=== PATIENT | female | born 1940 | race Caucasian/White ===

== ENCOUNTER 2017-03-07 07:33 | Inpatient (IN) | payer OTHER, MEDICARE ==
[~2017-03-07] VITALS: Ht 154.9 cm; Wt 77.2 kg
[~2017-03-07 07:33] MED LIST: /ADVA50050 INH; /ESCI10TA OR; /ESOM40CA OR; /PRAV20TA OR; /TIOT18INH INH; AMBI10TA OR; ARIMIDEX PO; CALCTAB22 OR; FERR325T OR; FOLI1TAB OR; Vitamin B1 PO; vitamin d2 PO
[2017-03-07] MEDS ORDERED: FENO50CA PO (07:44)
[2017-03-07] MEDS ORDERED: TEMA7.5C PO (07:44)
[2017-03-07] MEDS ORDERED: HYDR-3713 PO ×2 (07:44→10:18)
[2017-03-07] MEDS ORDERED: FURO80TA2 PO (07:44)
[2017-03-07 08:41] LABS: BASO % 0.2 % (0.0-1.0); EOS # 0.1 K/mm3 (0.0-0.50); EOS % 1.3 % (0.0-3.0); LARGE UNSTAINED CELL % 0.5 % (0.0-4.0); LYMPH # 1.2 K/mm3 (1.5-4.5); LYMPH % 12.4 % (24.0-44.0); MEAN CORPUSCULAR HEMOGLOBIN 32.7 pg (27.0-33.0); MEAN CORPUSCULAR HGB CONC 32.8 g/dl (32.0-36.5); MEAN CORPUSCULAR VOLUME 99.6 fl (80.0-96.0); MONO # 0.3 K/mm3 (0.0-0.8); MONO % 3.6 % (0.0-5.0); NEUTROPHILS # 7.7 K/mm3 (1.8-7.7); PLATELET COUNT, AUTOMATED 280 k/mm3 (150-450); RED CELL DISTRIBUTION WIDTH 12.1 % (11.5-14.5); WHITE BLOOD COUNT 9.3 K/mm3 (4.0-10.0)
[2017-03-07] MEDS ORDERED: NS 1,000 ML IV SCH (08:45)
[2017-03-07 08:54] LABS: INR 1.02
[2017-03-07 09:09] LABS: ALBUMIN 3.5 GM/DL (3.2-5.2); ALBUMIN/GLOBULIN RATIO 0.95 (1.00-1.93); ALKALINE PHOSPHATASE 78 U/L (45-117); ALT/SGPT 69 U/L (12-78); ANION GAP 7 MEQ/L (8-16); AST/SGOT 99 U/L (15-37); BILIRUBIN,DIRECT 0.6 MG/DL (0.0-0.2); BILIRUBIN,TOTAL 1.2 MG/DL (0.2-1.0); BLOOD UREA NITROGEN 25 MG/DL (7-18); CALCIUM LEVEL 9.3 MG/DL (8.8-10.2); CARBON DIOXIDE LEVEL 33 MEQ/L (21-32); CHLORIDE LEVEL 107 MEQ/L (98-107); CREATININE FOR GFR 0.91 MG/DL (0.55-1.02); GLOMERULAR FILTRATION RATE > 60.0 (>39); GLUCOSE, FASTING 144 MG/DL (83-110); POTASSIUM SERUM 3.5 MEQ/L (3.5-5.1); SODIUM LEVEL 147 MEQ/L (136-145); TOTAL PROTEIN 7.2 GM/DL (6.4-8.2)
[2017-03-07 09:20] LABS: ABG BASE EXCESS 2.2 (-2.0-2.0); ABG HCO3 27.5 MEQ/L (22.0-26.0); ABG PARTIAL PRESSURE CO2 45.2 mmHg (35.0-45.0); ABG PARTIAL PRESSURE O2 63.7 mmHg (75.0-100.0); ABG STANDARD HCO3 26.3 MEQ/L (22.0-26.0); ABG TOTAL CO2 28.9 MEQ/L (23.0-31.0); ABG pH (ARTERIAL) 7.402 UNITS (7.350-7.450)
--- NOTE | 2017-03-07 09:38 | REP ---
AP AND LATERAL LEFT ANKLE: 03/07/2017. Clinical history: Ankle trauma. Post splinting. Findings: There were no prior studies. The two views show fiberglass splint material posterior to the ankle and lower calf. There is a distal fibular fracture into the articular aspect of the mortise joint. There is lateral subluxation of the talus by least half its diameter on the tibial plafond taking the distal fragment of the fibula with it. I cannot confirm a posterior malleolar fracture or any definite medial malleolar fracture. Subtalar joints grossly intact. Calcaneus, tarsal bones and visualized metatarsals intact. Impression: 1. Fracture-subluxation involving distal fibula and the talus on the tibial plafond. The talus is subluxed laterally at least half its diameter articulation on the tibial plafond. No gross fracture medial or posterior malleoli. Signed by Clark López MD 03/07/2017 07:51 P
--- NOTE | 2017-03-07 09:38 | REP ---
AP PORTABLE SEATED CHEST: 03/07/2017. Clinical history: Lower extremity trauma. Comparison: 10/31/2011. Findings: The lungs show mild diffuse interstitial change with right diaphragm slightly elevated but unchanged from that previous exam. Heart size not enlarged. There is no pulmonary edema on today's study. The aorta is normal for age. Airway is intact. The bones show demineralization and degenerative changes AC and joints. There is chronic rotator cuff sufficiency on the right. Hardware from prior ORIF humeral fracture on the left. Impression: 1. Underlying interstitial fibrotic changes noted without cardiomegaly and no edema on today's study. No effusion or definite infiltrate. Signed by Clark López MD 03/07/2017 07:51 P
--- NOTE | 2017-03-07 10:04 | ECGEPIP ---
Stationary ECG Study [facility] - ED Test Date: 2017-03-07 Pat Name: ROGER CLIFTON Department: Room: - Gender: F Analytical Laboratory Technician: tk : [id number] Requested By: Theron Nash Order Number: [id number] Reading MD: Theron Marie Measurements Intervals [place] Rate: 71 P: 87 MN: 205 QRS: 15 QRSD: 89 T: 49 QT: 371 QTc: 405 Interpretive Statements SINUS RHYTHM WITH 1ST DEGREE AV BLOCK NONSPECIFIC T-WAVE ABNORMALITY SIMILQR TO 10/31/11 Electronically Signed On 03-07-2017 10:04:53 EDT by Theron Marie
[2017-03-07] MEDS ORDERED: NEXI40CA PO (10:18)
[2017-03-07] MEDS ORDERED: SPIR1CAP INH (10:18)
[2017-03-07] MEDS ORDERED: FURO20TA2 PO (10:18)
[2017-03-07] MEDS ORDERED: FENO67CA2 PO (10:18)
[2017-03-07] MEDS ORDERED: ANAS1TAB PO (10:18)
[2017-03-07] MEDS ORDERED: ALBU17IN INH (10:18)
[2017-03-07] MEDS ORDERED: PRAV20TA2 PO (10:18)
[2017-03-07] MEDS ORDERED: TEMA15CA2 PO (10:18)
[2017-03-07] MEDS ORDERED: LEXA1TAB2 PO (10:18)
[2017-03-07] MEDS ORDERED: MIDAZOLAM INJ 2 MG/2 ML VIAL (J2250) As Ordered ONE (12:14)
[2017-03-07] MEDS ORDERED: LIDOCAINE 2% INJ 100 MG/5 ML SDV (FOR ANES.) As Ordered ONE (12:14)
[2017-03-07] MEDS ORDERED: PROPOFOL 200 MG/20 ML VIAL As Ordered ONE (12:14)
[2017-03-07] MEDS ORDERED: fentaNYL 100 MCG/2 ML INJECTION (J3010) As Ordered ONE (12:14)
[2017-03-07] MEDS ORDERED: BUPIVACAINE/EPIN 0.25% 30 ML VIAL As Ordered ONE (12:40)
[2017-03-07] MEDS ORDERED: ceFAZolin 2 GM/D5W 50 ML IV BAG (J0690) As Ordered ONE (13:22)
[2017-03-07] MEDS ORDERED: PERCOCET 5MG/325MG TAB As Ordered ONE (14:23)
[2017-03-07] MEDS ORDERED: MORPHINE 2 MG/ML 1ML SYRINGE IV PRN ×2 (14:30)
[2017-03-07] MEDS ORDERED: fentaNYL 100 MCG/2 ML INJECTION (J3010) IV PRN (14:30)
[2017-03-07] MEDS ORDERED: LR 1,000 ML IV SCH (14:30)
[2017-03-07] MEDS ORDERED: ACETAMINOPHEN TAB 650MG DOSE (2X325MG) PO PRN (14:30)
[2017-03-07] MEDS ORDERED: PERCOCET 5MG/325MG TAB PO PRN (14:30)
[2017-03-07] MEDS ORDERED: ONDANSETRON 4MG/2ML VIAL (J2405) IV PRN ×2 (14:30)
[2017-03-07] MEDS: PERCOCET 5MG/325MG TAB PO PRN (14:34)
--- NOTE | 2017-03-07 14:51 | HPEPDOC ---
General Date of Admission Mar 07, 2017 at 09:43 Primary Care Physician: Brooke Walters Attending Physician: TONNY DUMONT MD Chief Complaint The patient is a 76-year-old female admitted with a reason for visit of Closed Displaced Fracture Of Lat Malleolus. Source: Patient, Family History of Present Illness Ms. Srinivasan is a 76 y/o woman who tripped over a door threshold on 03/04/17 and fell on her left side. She denies hitting her head or LOC. Her left ankle became swollen and painful after that; she did not seek immediate medical attention because she thought she had just sprained her ankle. Due to worsening pain and swelling, she went to [facility] ED last night and was found to have a closed displaced fracture of left lateral malleolus. She states that they wanted to transfer her to [facility], but there were no beds available. She was offered transfer to other hospitals, which she declined, and she was told to come to [facility] this morning at 7 am for admission. ED physician states case was discussed with Dr. Staples, who plans to take her to the OR this afternoon for repair. Home Medications Scheduled Anastrozole (Anastrozole) 1 Mg Tab, 1 MG PO DAILY, (Reported) Escitalopram Oxalate (Lexapro) 20 Mg Tab, 20 MG PO DAILY, (Reported) Esomeprazole Magnesium Trihydr (Nexium) 40 Mg Cap, 40 MG PO DAILY, (Reported) Fenofibrate (Fenofibrate Micronized) 67 Mg Cap, 67 MG PO DAILY, (Reported) Furosemide (Furosemide) 20 Mg Tab, 20 MG PO DAILY, (Reported) Pravastatin Sodium (Pravastatin Sodium) 20 Mg Tab, 20 MG PO DAILY, (Reported) Scheduled PRN Acetaminophen/Hydrocodone (Hydrocodone/Acetaminophen 5-325 mg) 1 Tab Tab, 1 TAB PO Q6H PRN for PAIN, (Reported) Acetaminophen/Hydrocodone (Hydrocodone/Acetaminophen 5-325 mg) 1 Tab Tab, 2 TAB PO Q6H PRN for PAIN, (Reported) Albuterol Sulfate (Ventolin Hfa) 200 Puff/8 Gm Aers, 2 PUFF INH Q4H PRN for SHORTNESS OF BREATH, (Reported) Temazepam (Temazepam) 15 Mg Cap, 15 MG PO QHS PRN for SLEEP, (Reported) Tiotropium [place] Monohydrate (Spiriva Handihaler) 18 Mcg Cap, 1 INHALATION INH DAILY PRN for SHORTNESS OF BREATH, (Reported) PATIENT STATES SHE ONLY TAKES PRN Allergies Coded Allergies: No Known Drug Allergy (Verified Allergy, Unknown, 11/03/12) Past Medical History Medical History 1. Hypertension 2. Hyperlipidemia 3. Anxiety and depression 4. GERD 5. Arthritis 6. Osteoporosis 7. COPD 8. History of left breast cancer 07/2008 9. Vitamin D deficiency Surgical History 1. Left hip fracture repair 2006 2. Open reduction of fracture of left arm 2006 3. Lumpectomy of left breast 2007 4. Cholecystectomy 2008 Family History Significant Family History: Noncontributory Social History * Smoker: former Smoker, quit greater than 1 year Alcohol: occationally (1-2 drinks, 2 times per week) Drugs: denies lives with her son Review of Symptoms Constitutional: Denies: Chills, Fever, Malaise Eyes: Denies: Pain ENT: Denies: Head Aches, Ear Pain Skin: Denies: Rash, Lesions Pulmonary: Denies: Dyspnea, Cough Cardiovascular: Denies: Chest Pain, Palpitations, Lt Headedness Gastrointestinal: Denies: Nausea, Vomiting, Abdominal Pain, Diarrhea, Constipation, Melena Genitourinary: Denies: Dysuria Musculoskeletal: Reports: Foot Pain (left ankle and foot pain only when she moves her left lower extremity), Denies: Neck Pain, Back Pain Neurological: Denies: Weakness, Numbness, Change in speech, Confusion Psych: Reports: Mood Normal, Denies: Memory Issues Physical Examination General Exam: Positive: Alert, Cooperative, No Acute Distress Eye Exam: Positive: PERRLA, Conjunctiva & lids normal, EOMI ENT Exam: Positive: Atraumatic, Mucous membr. moist/pink Neck Exam: Positive: Supple, Negative: JVD Chest Exam: Positive: Clear to auscultation, Normal air movement Heart Exam: Positive: Rate Normal, Regular Rhythm, Normal S1, Normal S2 Abdomen Exam: Positive: Normal bowel sounds, Soft, Negative: Tenderness Extremity Exam: Positive: Edema (left ankle edematous with overlying red- purple bruising and ankle is tender to touch) Skin Exam: Positive: Nl turgor and temperature Neuro Exam: Positive: Normal Speech, Cranial Nerves 3-12 NL Psych Exam: Positive: Mental status NL, Mood NL, Oriented x 3 Vital Signs Vital Signs Date Time Temp Pulse Resp B/P (MAP) Pulse Ox O2 Delivery O2 Flow Rate FiO2 03/07/17 14:13 58 18 138/60 (86) 97 Nasal Cannula 2 03/07/17 14:02 98.2 Laboratory Data Labs 24H Laboratory Tests 2 03/07/17 08:36: White Blood Count 9.3, Red Blood Count 4.40, Hemoglobin 14.4, Hematocrit 43.8, Mean Corpuscular Volume 99.6H, Mean Corpuscular Hemoglobin 32.7, Mean Corpuscular Hemoglobin Concent 32.8, Red Cell Distribution Width 12.1, Platelet Count 280, Neutrophils (%) (Auto) 82.0H, Lymphocytes (%) (Auto) 12.4L, Monocytes (%) (Auto) 3.6, Eosinophils (%) (Auto) 1.3, Basophils (%) (Auto) 0.2, Neutrophils # (Auto) 7.7, Lymphocytes # (Auto) 1.2L, Monocytes # (Auto) 0.3, Eosinophils # (Auto) 0.1, Basophils # (Auto) 0.0, Large Unclassified Cells % 0.5 , Large Unclassified Cells # 0.0, Prothrombin Time 13.5, Prothromb Time International Ratio 1.02, Activated Partial Thromboplast Time 29.3, Anion Gap 7L , Glomerular Filtration Rate > 60.0, Calcium Level 9.3, Aspartate Amino Transf ( AST/SGOT) 99H, Alanine Aminotransferase (ALT/SGPT) 69, Alkaline Phosphatase 78, Total Bilirubin 1.2H, Direct Bilirubin 0.6H, Total Protein 7.2, Albumin 3.5, Albumin/Globulin Ratio 0.95L, Ethyl Alcohol Level < 0.003 03/07/17 09:06: Blood Gas Bicarbonate Standard 26.3H, Arterial Blood pH 7.402, Arterial Blood Partial Pressure CO2 45.2H, Arterial Blood Partial Pressure O2 63.7L, Arterial Blood Total CO2 28.9, Arterial Blood HCO3 27.5H, Arterial Blood Base Excess 2.2H , Arterial Blood Oxygen Saturation 91.4L CBC/BMP Laboratory Tests 03/07/17 08:36 Red Blood Count 4.40, Mean Corpuscular Volume 99.6 H, Mean Corpuscular Hemoglobin 32.7, Mean Corpuscular Hemoglobin Concent 32.8, Red Cell Distribution Width 12.1, Neutrophils (%) (Auto) 82.0 H, Lymphocytes (%) (Auto) 12.4 L, Monocytes (%) (Auto) 3.6, Eosinophils (%) (Auto) 1.3, Basophils (%) ( Auto) 0.2, Neutrophils # (Auto) 7.7, Lymphocytes # (Auto) 1.2 L, Monocytes # ( Auto) 0.3, Eosinophils # (Auto) 0.1, Basophils # (Auto) 0.0 RAD Interpretation STUDY: CXR Rad Actions: Report Reviewed RAD Interpretation: Unchanged Problems (1) Syndesmotic disruption of left ankle Status: Acute Problem Specific Plan: Consult Specialist Problem Text: Dr. Staples was consulted by ED for surgical intervention. Patient is NPO in anticipation of procedure this afternoon. - In terms of pre-operative assessment, EKG shows NSR with T-wave inversion in V1, and is unchanged from EKG done in outpatient setting in 09/2011. Patient denies chest pain and has no history of [place] or CVA. She does have a history of COPD, but uses only PRN inhaled medications at home for this. I think she is low risk for surgical complications and is medically optimized for surgery at this time. (2) Essential hypertension Status: Acute Response to Treatment: Stable Problem Text: Hold lasix for now (3) COPD (chronic obstructive pulmonary disease) Status: Acute Response to Treatment: Stable Problem Text: Uses spiriva PRN and ventolin PRN at home; albuterol nebs PRN. No evidence of acute exacerbation. (4) GERD (gastroesophageal reflux disease) Status: Chronic Response to Treatment: Stable Problem Text: Hold PPI; will restart after surgery (5) Hyperlipidemia Problem Text: Continue pravastatin post-op (6) Arthritis Status: Chronic Problem Text: Takes Hydrocodone-APAP as an outpatient; will continue this post- op. (7) History of breast cancer Status: Chronic Response to Treatment: Stable (8) Depression Status: Chronic Response to Treatment: Stable Problem Text: Hold escitalopram; will restart after surgery Plan / VTE VTE Prophylaxis Ordered?: No (hold anticoagulation pre-op) TONNY DUMONT MD Mar 07, 2017 14:51
[2017-03-07 15:00] VITALS: BP 126/62
[2017-03-07 15:30] VITALS: BP 126/62
[2017-03-07] MEDS: PANTOPRAZOLE 40MG TAB (PROTONIX) PO SCH (16:27)
[2017-03-07] MEDS: ESCITALOPRAM OXALATE 10 MG TAB (LEXAPRO) PO SCH (16:27)
[2017-03-07] MEDS: PRAVASTATIN 20 MG TAB PO SCH (16:27)
[2017-03-07] MEDS: D5W/0.45% SODIUM CHLORIDE 1,000 ML IV SCH (16:28)
[2017-03-07 16:30] VITALS: BP 142/67
[2017-03-07 17:30] VITALS: BP 137/75
[2017-03-07 18:30] VITALS: BP 131/83
[2017-03-07 22:00] VITALS: BP 141/63
[2017-03-08 02:00] VITALS: BP 141/88
[2017-03-08] MEDS: D5W/0.45% SODIUM CHLORIDE 1,000 ML IV SCH (03:00)
[2017-03-08 06:00] VITALS: BP 139/91
[2017-03-08] MEDS: PERCOCET 5MG/325MG TAB PO PRN ×4 (06:13→21:02)
[2017-03-08 07:45] LABS: WHITE BLOOD COUNT 8.1 K/mm3 (4.0-10.0)
[2017-03-08 07:46] LABS: MEAN CORPUSCULAR HEMOGLOBIN 33.3 pg (27.0-33.0); MEAN CORPUSCULAR HGB CONC 33.1 g/dl (32.0-36.5); MEAN CORPUSCULAR VOLUME 100.5 fl (80.0-96.0); RED CELL DISTRIBUTION WIDTH 12.2 % (11.5-14.5)
[2017-03-08 08:28] LABS: CREATININE FOR GFR 0.56 MG/DL (0.55-1.02); GLOMERULAR FILTRATION RATE > 60.0 (>39)
[2017-03-08] MEDS: PRAVASTATIN 20 MG TAB PO SCH (09:09)
[2017-03-08] MEDS: MIRALAX *UNIT DOSE* 17GM PACKET PO SCH (09:09)
[2017-03-08] MEDS: PANTOPRAZOLE 40MG TAB (PROTONIX) PO SCH (09:09)
[2017-03-08 09:10] LABS: ANION GAP 10 MEQ/L (8-16); BLOOD UREA NITROGEN 18 MG/DL (7-18); CALCIUM LEVEL 8.6 MG/DL (8.8-10.2); CARBON DIOXIDE LEVEL 30 MEQ/L (21-32); CHLORIDE LEVEL 107 MEQ/L (98-107); GLUCOSE, FASTING 122 MG/DL (83-110); POTASSIUM SERUM 3.5 MEQ/L (3.5-5.1); SODIUM LEVEL 147 MEQ/L (136-145)
[2017-03-08] MEDS: ESCITALOPRAM OXALATE 10 MG TAB (LEXAPRO) PO SCH (09:10)
[2017-03-08] MEDS: ENOXAPARIN 40 MG/0.4 ML SYRINGE (J1650) SC SCH (11:57)
[2017-03-08 14:00] VITALS: BP 127/60
--- NOTE | 2017-03-08 17:47 | IPNPDOC ---
Subjective Date Seen The patient was seen on 03/08/17. Subjective Chief Complaint/HPI The patient is a 76-year-old female admitted with a reason for visit of Closed Displaced Fracture Of Lat Malleolus. Events since last encounter Patient denies pain in left lower extremity; she has been keeping it elevated. Constitutional: Denies: Chills, Fever Pulmonary: Denies: Dyspnea, Cough Cardiovascular: Denies: Chest Pain, Palpitations, Lt Headedness Gastrointestinal: Denies: Nausea, Vomiting, Abdominal Pain, Diarrhea, Constipation Objective Physical Examination General Exam: Positive: Alert, Cooperative, No Acute Distress Eye Exam: Positive: PERRLA ENT Exam: Positive: Atraumatic, Mucous membr. moist/pink Chest Exam: Positive: Clear to auscultation, Normal air movement Heart Exam: Positive: Rate Normal, Regular Rhythm, Normal S1, Normal S2 Abdomen Exam: Positive: Normal bowel sounds, Soft, Negative: Tenderness Extremity Exam: Positive: Other (Left lower leg in cast) Skin Exam: Positive: Nl turgor and temperature Neuro Exam: Positive: Normal Speech, Cranial Nerves 3-12 NL Psych Exam: Positive: Mental status NL, Mood NL, Oriented x 3 Assessment /Plan Problems (1) Syndesmotic disruption of left ankle Status: Acute Problem Specific Plan: Consult Specialist Problem Text: POD #1 s/p repair of left ankle fracture. Management per Dr. Staples. (2) Essential hypertension Status: Acute Response to Treatment: Stable Problem Text: Hold lasix for now (3) COPD (chronic obstructive pulmonary disease) Status: Acute Response to Treatment: Stable Problem Text: Uses spiriva PRN and ventolin PRN at home; albuterol nebs PRN. No evidence of acute exacerbation. (4) GERD (gastroesophageal reflux disease) Status: Chronic Response to Treatment: Stable Problem Text: Continue PPI (5) Hyperlipidemia Problem Text: Continue pravastatin (6) Arthritis Status: Chronic Problem Text: Takes Hydrocodone-APAP as an outpatient; on hold Plan/VTE VTE Prophylaxis Ordered?: Yes (ppx lovenox) VS, I&O, 24H, Fishbone Vital Signs/I&O Vital Signs Date Time Temp Pulse Resp B/P (MAP) Pulse Ox O2 Delivery O2 Flow Rate FiO2 03/08/17 16:35 14 Room Air 03/08/17 14:00 98.6 73 127/60 (82) 93 03/07/17 14:13 2 I&O- Last 24 Hours up to 6 AM 03/08/17 06:00 Intake Total 1740 ml Output Total 450 ml Balance 1290 ml Laboratory Data 24H LABS Laboratory Tests 2 03/08/17 06:12: Anion Gap 10, Glomerular Filtration Rate > 60.0, Blood Urea Nitrogen 18, Creatinine 0.56, Sodium Level 147H, Potassium Level 3.5, Chloride Level 107, Carbon Dioxide Level 30, Calcium Level 8.6L CBC/BMP Laboratory Tests 03/08/17 06:12 Red Blood Count 3.82 L, Mean Corpuscular Volume 100.5 H, Mean Corpuscular Hemoglobin 33.3 H, Mean Corpuscular Hemoglobin Concent 33.1, Red Cell Distribution Width 12.2, Calcium Level 8.6 L TONNY DUMONT MD Mar 08, 2017 17:47
[2017-03-08 22:00] VITALS: BP 120/62
[2017-03-09 06:00] VITALS: BP 141/73
--- NOTE | 2017-03-09 06:42 | CR ---
DATE OF CONSULTATION: 03/07/2017 CHIEF COMPLAINT: Left ankle pain. HISTORY OF PRESENT ILLNESS: This is 76-year-old female. She tripped over door threshold while at home and stumbled, fracturing the ankle. The injury happened on 03/04/2017. She thought it was sprained, but it became painful and swollen. She did end up seeking medical attention on 03/06/2017 at [facility], where they appreciated a fracture of the fibula with a widened ankle mortise. Orthopedics was consulted via telephone. Patient was advised to be splinted and to visit the [facility] Emergency Room for a [id number] consultation, possible surgical intervention. Patient presented on 03/07/2017, today. She had more extensive x-rays done at the [facility] Emergency Room that appreciated a significant ankle fracture subluxation/dislocation. The mortise was more than 1 cm wide with a displaced fibula fracture, Ac B. Orthopedics was consulted by Dr. Marie in the emergency room (ER). Patient has no other physical complaints other than the ankle pain from the injury. ALLERGIES: No known drug allergies. MEDICAL HISTORY: Includes: 1. Hypertension 2. Hyperlipidemia. 3. Anxiety. 4. Reflux disease. 5. Arthritis. 6. Osteoporosis. 7. Chronic obstructive pulmonary disease due to smoking; not an active smoker currently. 8. Left breast cancer in 2007. 9. A vitamin deficiency of vitamin D. SURGICAL HISTORY: 1. She had a left hip fracture repaired in 2006. 2. Left humerus fracture in 2006. 3. Lumpectomy in 2007. 4. Cholecystectomy in 2008. FAMILY HISTORY: Is not contributory. SOCIAL HISTORY: She quit smoking more than a year ago but does drink. She estimate two beers a couple of times per week. She lives at home with her son. REVIEW OF SYSTEMS: She is not complaining of fevers or chills. She is not complaining of blurry vision. She is not complaining of loss of consciousness. Not complaining of headaches. She is not complaining of skin lesions or rash. Not complaining today of shortness of breath, chronic cough. Not complaining of chest pain. Not complaining of urinary pain. Not complaining of musculoskeletal pain other than the history of present illness (HPI). Not complaining of numbness. Anxiety is controlled. CLINICAL EXAMINATION: She is alert, oriented, and cooperative. Mood and affect are appropriate. OVERALL APPEARANCE: She is a relatively frail 76-year-old female. She is not short of breath and talks in complete sentences. Normocephalic, atraumatic. No abdominal distension. EXTREMITIES: Left lower extremity sensate. Right lower extremity sensate. Left lower extremity swollen with ankle deformity in a splint. Warm and well perfused. Palpable pulse. Skin is healthy face, upper/lower extremities. IMAGING STUDIES: Ankle fracture-dislocation, as above. LABS: Hematocrit 43. Creatinine 0.91. IMPRESSION: Ankle fracture-dislocation involving a wide mortise with a fibula fracture, Ac B. RECOMMENDATIONS: Patient is medically optimized by Dr. Roy of the [facility] service. She was made nothing by mouth. Coordinated care with the emergency room (ER) as well as operating room and anesthesia group. PLAN: 1. Is for plate fixation of the fibula, assessment of mortise stability, and casting. 2. Preoperative pack was completed. Consent document was completed, including chloe discussion of the procedure proposed; alternatives, including doing nothing; risks, including, but not limited to, pain, limp, infection, bleeding blood loss, stiffness, posttraumatic arthritis, blood clots, and other problems. Patient agrees to proceed with surgery. 3. Postoperatively, this patient may benefit from subacute rehabilitation. This patient may benefit from physical therapy assessment as well postoperatively. For further details, please refer to the medical record.
[2017-03-09] MEDS ORDERED: PERC5TAB12 PO (06:43)
[2017-03-09] MEDS ORDERED: ASPI325T PO (06:43)
[2017-03-09 07:16] LABS: ANION GAP 4 MEQ/L (8-16); BLOOD UREA NITROGEN 16 MG/DL (7-18); CALCIUM LEVEL 8.5 MG/DL (8.8-10.2); CARBON DIOXIDE LEVEL 33 MEQ/L (21-32); CHLORIDE LEVEL 108 MEQ/L (98-107); CREATININE FOR GFR 0.61 MG/DL (0.55-1.02); GLOMERULAR FILTRATION RATE > 60.0 (>39); GLUCOSE, FASTING 114 MG/DL (83-110); POTASSIUM SERUM 3.3 MEQ/L (3.5-5.1); SODIUM LEVEL 145 MEQ/L (136-145)
--- NOTE | 2017-03-09 07:45 | RO ---
DATE OF PROCEDURE: 03/07/2017 PREOPERATIVE DIAGNOSIS: Left ankle fracture dislocation. POSTOPERATIVE DIAGNOSIS: Left ankle fracture dislocation. PROCEDURE: Open reduction, internal fixation of left ankle fracture dislocation with fixation of the fibula as well as postoperative casting. SURGEON: Shiraz Staples MD CAREGIVERS NON MEDICAL: ANESTHESIA: Spinal. Estimated blood loss is less than 30 mL. Replaced with crystalloid. No complications. No tourniquet utilized. DESCRIPTION OF PROCEDURE: Identified in the holding area. Site side verified. Brought to the operating room. Of note, components used include a Synthes 1/3 tubular plate and the appropriate cortical and cancellus screws as well as the AP lag screw. Once she was positioned, time-out was accomplished, sterilely prepped, draped usual fashion. Tourniquet not inflated. Next, reduction maneuver was implemented. Reduction visualized fluoroscopically. Incision was outlined with a marking pen. Infiltrated with 0.25% Marcaine with epinephrine and made with a #10 blade knife. Developed down through skin and subcuticular tissues to the lateral aspect of the fibula. Soft tissue was protected. The fracture was reduced using a fracture reduction clamp. An AP lag screw was placed by over drilling the anterior surface. I was able to then remove the fracture reduction clamp and the fracture appeared to be stable. Next, 1/3 tubular plate was selected and contoure. It was secured to the lateral aspect of the distal fibula distally with cancellus screws, proximally with cortical screws. The middle hole left empty at fracture site. Next, post reduction again assessed imaging on fluoroscopy including the lateral, mortise views. Reduction was anatomic. Wound was irrigated. Closed with interrupted stitch and lul. Dressing was applied. A short-leg cast was applied. The patient was then able to be moved to the recovery room in good condition. For further details, please refer to medical record.
[2017-03-09] MEDS: ENOXAPARIN 40 MG/0.4 ML SYRINGE (J1650) SC SCH (08:13)
[2017-03-09] MEDS: ESCITALOPRAM OXALATE 10 MG TAB (LEXAPRO) PO SCH (08:13)
[2017-03-09] MEDS: PRAVASTATIN 20 MG TAB PO SCH (08:14)
[2017-03-09] MEDS: PANTOPRAZOLE 40MG TAB (PROTONIX) PO SCH (08:15)
[2017-03-09] MEDS: PERCOCET 5MG/325MG TAB PO PRN ×2 (08:15→12:10)
[2017-03-09] MEDS: MIRALAX *UNIT DOSE* 17GM PACKET PO SCH (08:16)
--- NOTE | 2017-03-10 09:28 | REP ---
AP LATERAL LEFT ANKLE: 03/07/2017 Comparison acute fracture x-ray earlier this date. Findings: Two views from C-arm fluoroscopy provided to Dr. Staples of the orthopedic division show plate and screw fixation of the distal fibular fracture with a single screw across the fracture in the anterior posterior dimension as well. Re-alignment of the talus and re-establishment of the symmetric ankle mortise accomplished. No posterior malleolar or distal tibial fracture noted. Fluoroscopy time 11 seconds. Signed by Clark López MD 03/10/2017 10:27 A
--- NOTE | 2017-04-15 21:59 | DS.PDOC ---
Discharge Summary General Date of Admission Mar 07, 2017 at 09:43 Date of Discharge March 09, 2017 Discharge Summary PROCEDURES PERFORMED DURING STAY: Open reduction, internal fixation of left ankle fracture dislocation with fixation of the fibula as well as postoperative casting ADMITTING DIAGNOSES: 1. L ankle fracture and dislocation 2. essential hypertension 3. COPD 4. GERD 5. hyperlipidemia 6. arthritis 7. history of breast cancer 8. depression DISCHARGE DIAGNOSES: 1. L ankle fracture and dislocation 2. essential hypertension 3. COPD 4. GERD 5. hyperlipidemia 6. arthritis COMPLICATIONS/CHIEF COMPLAINT: Closed Displaced Fracture Of Lat Malleolus. HISTORY OF PRESENT ILLNESS: Ms. Srinivasan is a 76 y/o woman who tripped over a door threshold on 03/04/17 and fell on her left side. She denies hitting her head or LOC. Her left ankle became swollen and painful after that; she did not seek immediate medical attention because she thought she had just sprained her ankle. Due to worsening pain and swelling, she went to [facility] ED last night and was found to have a closed displaced fracture of left lateral malleolus. She states that they wanted to transfer her to [facility], but there were no beds available. She was offered transfer to other hospitals, which she declined, and she was told to come to [facility] this morning at 7 am for admission. ED physician states case was discussed with Dr. Staples, who plans to take her to the OR this afternoon for repair. HOSPITAL COURSE: Patient was taken to the OR by Dr. Staples, who repaired and casted her L ankle. She had an uneventful postoperative course, and was cleared for DC home with services by physical therapy on 03/09/2017. She was discharged by the orthopedic service, with instructions to follow up with orthopedics on 03/23. DISCHARGE MEDICATIONS: Please see below. ALLERGIES: Please see below. LABORATORY DATA: Please see below. IMAGING: Ankle film 03/07 showed Fracture-subluxation involving distal fibula and the talus on the tibial plafond. The talus is subluxed laterally at least half its diameter articulation on the tibial plafond. No gross fracture medial or posterior malleoli. Postoperatively, another film later that day showed reduction and fixation. PROGNOSIS: good ACTIVITY: nonweightbearing L ankle DIET: as tolerated DISCHARGE PLAN: home, with orthopedic follow up DISPOSITION: Home, Self-Care. DISCHARGE INSTRUCTIONS: appointment with on March 23 at 3:30pm phone:[phone] non weight bearing left leg call for temperature of 101,increased pain,swelling of left leg,cast feels too tight,toes are blue,cold,unable to wiggle toes,any concerns elevate left leg wiggle toes frequently don't place anything in cast ITEMS TO FOLLOWUP ON ON OUTPATIENT: fracture healing DISCHARGE CONDITION: [Stable]. TIME SPENT ON DISCHARGE: Greater than 10 minutes. Discharge Medications Scheduled Anastrozole (Anastrozole) 1 Mg Tab, 1 MG PO DAILY, (Reported) Aspirin (Aspirin) 325 Mg Tab, 1 TAB PO DAILY X 3 Weeks Escitalopram Oxalate (Lexapro) 20 Mg Tab, 20 MG PO DAILY, (Reported) Esomeprazole Magnesium Trihydr (Nexium) 40 Mg Cap, 40 MG PO DAILY, (Reported) Fenofibrate (Fenofibrate Micronized) 67 Mg Cap, 67 MG PO DAILY, (Reported) Furosemide (Furosemide) 20 Mg Tab, 20 MG PO DAILY, (Reported) Pravastatin Sodium (Pravastatin Sodium) 20 Mg Tab, 20 MG PO DAILY, (Reported) Scheduled PRN Albuterol Sulfate (Ventolin Hfa) 200 Puff/8 Gm Aers, 2 PUFF INH Q4H PRN for SHORTNESS OF BREATH, (Reported) Oxycodone/Acetaminophen (Percocet 5-325 mg) 1 Tab Tab, 1-2 TAB PO Q4H PRN for PAIN Temazepam (Temazepam) 15 Mg Cap, 15 MG PO QHS PRN for SLEEP, (Reported) Tiotropium [place] Monohydrate (Spiriva Handihaler) 18 Mcg Cap, 1 INHALATION INH DAILY PRN for SHORTNESS OF BREATH, (Reported) PATIENT STATES SHE ONLY TAKES PRN Allergies Coded Allergies: No Known Drug Allergy (Verified Allergy, Unknown, 11/03/12) JAI MONREAL DO Apr 15, 2017 21:59
== END 2017-03-09 12:15 | disposition home or self-care (01) | DRG 494 ==
LOC: M ED 07:33 → M ED INP 09:43 → M MS5PR 14:53
PROVIDERS: ADMIT Family Medicine; ATTEND Family Medicine
PROC: 0QSK04Z Reposition Left Fibula with Internal Fixation Device, Open Approach (ICD-10-PCS; principal; 2017-03-07 12:00)
DX: S92.192A Other fracture of left talus, initial encounter for closed fracture (principal); W18.09XA Striking against other object with subsequent fall, initial encounter; Y92.008 Other place in unspecified non-institutional (private) residence as the place of occurrence of the external cause; Y99.8 Other external cause status; I10 Essential (primary) hypertension; S82.492A Other fracture of shaft of left fibula, initial encounter for closed fracture; E78.5 Hyperlipidemia, unspecified; F41.9 Anxiety disorder, unspecified; F32.9 Major depressive disorder, single episode, unspecified; K21.9 Gastro-esophageal reflux disease without esophagitis; M81.0 Age-related osteoporosis without current pathological fracture; M19.90 Unspecified osteoarthritis, unspecified site; J44.9 Chronic obstructive pulmonary disease, unspecified; E55.9 Vitamin D deficiency, unspecified; Z85.3 Personal history of malignant neoplasm of breast; Z79.899 Other long term (current) drug therapy; Z87.891 Personal history of nicotine dependence

== ENCOUNTER → 2017-05-19 | Outpatient (REF) | payer OTHER ==
[~2017-05-19] MED LIST changes: +ALBU17IN INH; +ANAS1TAB PO; +ASPI325T PO; +FENO50CA PO; +FENO67CA2 PO; +FURO20TA2 PO; +FURO80TA2 PO; +HYDR-3713 PO; +LEXA1TAB2 PO; +NEXI40CA PO; +PERC5TAB12 PO; +PRAV20TA2 PO; +SPIR1CAP INH; +TEMA15CA2 PO; +TEMA7.5C PO
[2017-05-19 11:31] LABS: MEAN CORPUSCULAR HEMOGLOBIN 32.2 pg (27.0-33.0); MEAN CORPUSCULAR HGB CONC 32.9 g/dl (32.0-36.5); MEAN CORPUSCULAR VOLUME 97.9 fl (80.0-96.0); RED CELL DISTRIBUTION WIDTH 12.4 % (11.5-14.5); WHITE BLOOD COUNT 6.6 10^3/uL (4.0-10.0)
[2017-05-19 12:03] LABS: ALBUMIN 3.8 GM/DL (3.2-5.2); ALBUMIN/GLOBULIN RATIO 1.23 (1.00-1.93); ALKALINE PHOSPHATASE 79 U/L (45-117); ALT/SGPT 24 U/L (12-78); ANION GAP 10 MEQ/L (8-16); AST/SGOT 27 U/L (15-37); BILIRUBIN,TOTAL 0.5 MG/DL (0.2-1.0); BLOOD UREA NITROGEN 12 MG/DL (7-18); CARBON DIOXIDE LEVEL 27 MEQ/L (21-32); CHLORIDE LEVEL 102 MEQ/L (98-107); CHOLESTEROL LEVEL 193 MG/DL (<200); CREATININE FOR GFR 0.73 MG/DL (0.55-1.02); GLOMERULAR FILTRATION RATE > 60.0 (>39); GLUCOSE, FASTING 113 MG/DL (83-110); POTASSIUM SERUM 3.8 MEQ/L (3.5-5.1); SODIUM LEVEL 139 MEQ/L (136-145); TOTAL PROTEIN 6.9 GM/DL (6.4-8.2); TRIGLYCERIDES LEVEL 176 MG/DL (<150)
== END ==
LOC: M SFHCCLAY 07:35
PROVIDERS: ATTEND Nurse Practitioner Family
DX: K21.9 Gastro-esophageal reflux disease without esophagitis (principal); I10 Essential (primary) hypertension; E78.4 Other hyperlipidemia; E55.9 Vitamin D deficiency, unspecified

== ENCOUNTER → 2017-09-29 | Outpatient (REF) | payer OTHER ==
[2017-09-29 18:01] LABS: CHOLESTEROL LEVEL 209 MG/DL (<200); CHOLESTEROL RISK RATIO 3.166 (<5); HDL CHOLESTEROL 66 MG/DL (>40); NON-HDL-C 143 MG/DL; TRIGLYCERIDES LEVEL 270 MG/DL (<150)
[2017-09-29 18:05] LABS: TOTAL 25(OH) VITAMIN D 18.6 NG/ML (30.0-100.0)
== END ==
LOC: M SFHCCLAY 09:58
DX: E78.4 Other hyperlipidemia (principal); E55.9 Vitamin D deficiency, unspecified
CPT/HCPCS: 82306

== ENCOUNTER → 2018-03-23 | Outpatient (REF) | payer OTHER ==
[2018-03-23 18:54] LABS: CHOLESTEROL LEVEL 232 MG/DL (<200); HDL CHOLESTEROL 58 MG/DL (>40); LDL CHOLESTEROL 131.2 MG/DL (<100); NON-HDL-C 174 MG/DL; TRIGLYCERIDES LEVEL 214 MG/DL (<150)
[2018-03-23 18:58] LABS: TOTAL 25(OH) VITAMIN D 96.1 NG/ML (30.0-100.0)
== END ==
LOC: M SFHCCLAY 10:53
DX: E78.4 Other hyperlipidemia (principal); E55.9 Vitamin D deficiency, unspecified
CPT/HCPCS: 82306